=== PATIENT | male | born 1960 | race Caucasian/White ===

== ENCOUNTER 2021-11-07 19:34 | Emergency (ER) | payer OTHER, SELFPAY ==
--- NOTE | 2021-11-07 20:01 | ED.GENADULT ---
HPI - General Adult General Chief complaint: Extremity Injury, Upper Stated complaint: Finger Injury Source: patient Mode of arrival: ambulatory Limitations: no limitations History of Present Illness HPI narrative: Patient presents for evaluation of pain and swelling to the distal phalanx of the third digit of the right hand and the distal phalanx of the fourth digit of the right hand. He was closing garage door when his fingers got caught in the hinge. This occurred 2 hours ago. He reports purple appearance to nail plates of the third and fourth digits of the right hand. At rest he has no pain whatsoever but with palpation of the affected area his pain increases to 9 out of 10 in severity. No loss of range of motion. No paresthesias. He is right-hand dominant. He does not smoke. He is not diabetic. Date of last tetanus unknown. Related Data Home Medications Medication Instructions Recorded Confirmed allopurinol 300 mg tablet 300 mg PO DAILY 11/07/21 11/07/21 losartan 50 mg tablet 50 mg PO DAILY 11/07/21 11/07/21 Allergies Allergy/AdvReac Type Severity Reaction Status Date / Time NSAIDS (Non-Steroidal Allergy Anaphylaxis Verified 11/07/21 19:52 Anti-Inflamma Review of Systems Review of Systems: CONSTITUTIONAL: Denies fever, chills, or sweats. EYES: Denies visual changes, redness, or discharge. ENT: Denies rhinorrhea, congestion, sore throat, or otalgia. CARDIOVASCULAR: Denies chest pain, palpitations, or edema. RESPIRATORY: Denies cough or dyspnea. GASTROINTESTINAL: Denies abdominal pain, nausea, vomiting, or diarrhea. GENITOURINARY: Denies dysuria or hematuria. SKIN: Reports bruising to the distal phalanx of the third digit of the right hand and distal phalanx of the fourth digit of the right hand. MUSCULOSKELETAL: Reports pain in the distal phalanx of the third digit of the right hand and pain in the distal phalanx of the fourth digit of the right hand. NEUROLOGIC: Denies headache, numbness, dizziness, or weakness. PSYCHIATRIC: Denies anxiety or depression. [facility] Past Medical History Medical History No pertinent past medical history Surgical History Surgical History No pertinent past surgical history Family History Family History Mother Family history non-contributory Social History Social History Smoking status: Never smoker Substance use: never Living arrangements: with family Gender identity (if verbalized by the patient): Male Spiritual care concerns: No Exam Narrative: GENERAL: Well-appearing, well-nourished, and in no acute distress. HEAD: Normocephalic, atraumatic. EYES: PERRLA and EOMI. ENT: Nares clear, no rhinorrhea or epistaxis. Mucous membranes moist. Oropharynx without tonsillar hypertrophy exudate or other lesions. Bilateral TMs pearly javier nonbulging NECK: Supple. No adenopathy or masses. No carotid bruits or JVD CHEST: Clear to auscultation. No respiratory distress. No wheezes rales or rhonchi HEART: Regular rate and rhythm. No murmur heard. Normal peripheral pulses. ABDOMEN: Soft, nontender, nondistended, normal active bowel sounds. EXTREMITIES: Normal range of motion. Swelling noted to the distal phalanx of the third digit of the right hand with associated tenderness. No decreased range of motion at the DIP joint of that digit. Swelling noted to the distal phalanx of the fourth digit of the right hand with associated tenderness. There is no decreased range of motion at the DIP joint of that digit. SKIN: There is bruising noted to the distal phalanx of the third digit of the right hand and fourth digit of the right hand. There is a purple discoloration to the nail plates of the third and fourth digits of the right hand consistent
== END 2021-11-07 20:02 | disposition home or self-care (01) ==
PROVIDERS: Emergency Provider Nurse Practitioner
DX: S60.031A Contusion of right middle finger without damage to nail, initial encounter (principal); S60.041A Contusion of right ring finger without damage to nail, initial encounter; W23.0XXA Caught, crushed, jammed, or pinched between moving objects, initial encounter
CPT/HCPCS: 10160 ×2; 99212; G0463